=== PATIENT | female | born 2000 | race Caucasian/White ===

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

== ENCOUNTER → 2021-04-22 13:38 | Outpatient (CLI) | payer BC, SELFPAY ==
[2014-01-05 17:47] VITALS: BMI 33.4
[2021-04-22 15:41] LABS: Absolute Lymphocyte Count 1.88 X10^3/uL (0.83-4.51); Absolute Neutrophil Count 4.6 X10^3/uL (2.0-7.7); Basophil# 0.03 X10^3/uL; Basophil% 0.4 % (0-1); Eosinophils% 2.8 % (0-5); Hematocrit 41.8 % (37-47); Hemoglobin 13.7 g/dL (12.0-15.0); Lymphocyte # 1.88 X10^3/ul (0.83-4.51); Mean Corp Hgb Conc 32.8 g/dL (32-36); Mean Corpuscular Hgb 30.4 pg (27.0-32.0); Mean Corpuscular Volume 92.7 fL (81-99); Mean Platelet Vol. 10.7 fl (6.2-12.0); Monocyte# 0.52 X10^3/uL; Monocyte% 7.2 % (0-10); NRBC Flagged by Analyzer 0 % (0-5); Neutrophil # 4.58 X10^3/uL (2.7-7.7); Neutrophil % 63.3 % (47-70); Platelet Count 268 K/mm3 (150-450); RBC Distribution Width CV 13.1 % (11.6-14.6); Red Blood Count 4.51 M/mm3 (4.2-5.4); White Blood Count 7.2 K/mm3 (4.4-11.0)
[2021-04-22 16:18] LABS: AST(SGOT) 23 U/L (15-37); Alanine Aminotransfer ALT/SGPT 33 U/L (13-56); Albumin, Serum 3.8 g/dL (3.2-5.0); Alkaline Phosphatase 74 U/L (45-117); Anion Gap 9 (5-15); BUN 12 mg/dL (7-18); BUN/Creat Ratio 14.4 RATIO (10-20); Calcium,Total 8.9 mg/dL (8.5-10.1); Chloride 105 mmol/L (98-107); Cholesterol 180 mg/dL (200); Creatinine, Serum 0.83 mg/dL (0.55-1.02); EST Glomerular Filtration Rate 91 mL/min (>60); Est Glom Filt Rate - Afr Amer 110 mL/min (>60); Globulin 3.8 g/dL (2.2-4.2); Glucose 85 mg/dL (74-106); High Density Lipoprotein 50 mg/dL; Protein, Total 7.6 g/dL (6.4-8.2); Sodium Level 140 mmol/L (136-145); T4 Free Direct 1.05 ng/dL (0.76-1.46); Thyroid Stim Hormone (TSH) 1.08 uIU/mL (0.358-3.74); Triglycerides 121 mg/dL; Very Low Density Lipoprotein 24 mg/dL (5-40)
[2021-04-22 18:40] LABS: Chlamydia Trachomatis by PCR Negative (Negative); Neisserai gonorrhoeae by PCR Negative (Negative); Probe Check PASS; Sample Adequacy Control PASS; Specimen Processing Control PASS; Trichomonas Vag DNA by PCR Negative (Negative)
[2021-04-24 16:44] LABS: HSV 1 IgG < 0.91 index (0.00-0.90); HSV 2 IgG > 23.60 index (0.00-0.90); Thyroid Peroxidase AB 9 IU/mL (0-34)
[2021-04-25 15:58] LABS: HIV - WCH Non-Reactive (Nonreactive); Syphilis Antibodies Non-reactive
== END ==
PROVIDERS: Referring Provider Nurse Practitioner Adult Health; Visit Provider Nurse Practitioner Adult Health
DX: Z01.419 Encounter for gynecological examination (general) (routine) without abnormal findings (principal); Z72.51 High risk heterosexual behavior
CPT/HCPCS: 36415; 80053; 80061; 84439; 84443; 85025; 86376; 86695; 86696; 86703; 86780; 87491; 87591; 87661

== ENCOUNTER 2021-06-04 00:33 | Emergency (ER) | payer BC, SELFPAY ==
[2021-06-04 00:34] VITALS: BP 124/76; PULSE 88; RESP 18; TEMP 36.6; O2SAT 99; BMI 41.8
--- NOTE | 2021-06-04 01:43 | EX.ED.UPPERE ---
HPI History of Present Illness Chief Complaint: Wound Informant: patient Onset/Context/Timing Onset: Today (JPTA) Context: Sudden Onset Timing: Continuous Quality of Pain: Aching Location: right middle fingernail Current Severity: Mild Maximum Severity: Severe Worsened by: manipulating nail Relieved by: leaving alone Associated Symptoms Associated Symptoms: Negative for Parasthesia, Weakness and Loss of Funtion Narrative Narrative: Patient was walking her dog, the leash got wrapped around one of her fingers, hooked onto the nail which is a false gel nail on top of her natural 1, and felt like it ripped it back. She states it felt like it came all the way off of the nailbed. There is some minor bleeding and it is sore, she does not think she injured any other part of the finger except for the nail. [id number]. PFSH PFSH no medical history Home Medications etonogestrel-ethinyl estradiol [EluRyng] 1 vag ring VAGINAL QMONTH 06/04/21 [History Last Taken Unknown] Allergy/AdvReac Type Severity Reaction Status Date / Time ibuprofen Allergy Swelling Verified 06/04/21 00:37 Social History Smoking Status: Never smoker ROS ROS ED Constitutional Constitutional ED: Denies chills or fever(s) Musculoskeletal Musculoskeletal: Reports extremity pain; Denies neck pain Integumentary Denies Abrasions, rash or wounds Neurologic Neurologic: Denies paresthesias or weakness EXAM Physical Exam Const Vital Signs: 06/04/21 00:34 Temperature 97.8 F Temperature Source Temporal Pulse Rate 88 Respiratory Rate 18 Blood Pressure 124/76 H Blood Pressure Mean 92 Pulse Ox 99 Oxygen Delivery Method Room Air Positive well nourished and well developed General Appearance ED: well developed and NAD Neck full ROM and supple Back/Spine normal ROM and normal to inspection Extremity full ROM Extremity Narrative: Right middle finger: Nail is slightly loosened and barely able to lift off of the nailbed. It is intact within the root/cuticle without any disruption of that structure or bleeding from there or laceration. Source of the bleeding is at the sides of the nail only and is very minor. The nail is very long, as it has a gel nail attached to it, and thick and very opaque with green dutch with designs on it. Neuro oriented x3, no focal motor deficits and no sensory deficits noted Sensorium / Orientation: alert Psych mental status grossly normal and thought process normal Skin Skin Narrative: Very minor superficial break in the skin at the very edge of both sides of the right middle fingernail. No lacerations. Rashes: no rashes MDM MDM MDM Narrative Medical decision making narrative: I do not think patient needs an x-ray, FDP and FDS tendon function is intact and normal without any discomfort, there is no bony tenderness of the finger. I think this nail injury is not as bad as the patient thought it was, it does appear to be adherent to the nail bed and the bleeding appears to be coming from very small splits in the skin to the sides of the nail, without a suspicion for a major nailbed injury/laceration. The patient looked up the gel nails that she has on the Internet, they are not acetone-dissolvable, and require some type of special electric file to physically remove. We do not have any of this here in the hospital. She understands this. I reassured her, I would leave it intact at this time without removing it and inspecting the bed, as there is a good chance that she will not even lose this nail. I also discussed with her the possibility that she will lose the nail in which case leaving it intact will increase the chances of a new nail growing out, as I do not think she has a major nailbed injury needing repaired. She is in agreement with all this, we soaked it with chlorhexidine/saline, and dressed it with a bulky dressing and bacitracin, and she was given follow-up as needed only, she is comfortable with that plan. Discharge Plan Triage Chief Complaint: Wound ED Provider: Suraj Guzman Dx/Rx/DC Orders Clinical Impression: Injury to fingernail of right hand Instructions: ED Detached Fingernail or Toenail Prescriptions: No Action etonogestrel-ethinyl estradiol [EluRyng] 0.12-0.015 mg/24 hr ring 1 vag ring VAGINAL QMONTH RF: 0 [facility] Lucia [facility] - As Needed Disposition Disposition: Home, Self Care
== END 2021-06-04 02:21 | disposition home or self-care (01) ==
PROVIDERS: Emergency Provider Emergency Medicine
DX: S69.91XA Unspecified injury of right wrist, hand and finger(s), initial encounter (principal); X58.XXXA Exposure to other specified factors, initial encounter; Y93.K1 Activity, walking an animal; Y92.9 Unspecified place or not applicable; Y99.9 Unspecified external cause status
CPT/HCPCS: 99282

== ENCOUNTER 2022-01-03 15:02 | Outpatient (CLI) | payer BC, SELFPAY ==
[2022-01-05 13:14] LABS: Thyroid Peroxidase AB 11 IU/mL (0-34)
== END 2022-01-03 23:59 | disposition home or self-care (01) ==
LOC: LAB 15:03
PROVIDERS: Referring Provider Nurse Practitioner Adult Health; Visit Provider Nurse Practitioner Adult Health
DX: F33.0 Major depressive disorder, recurrent, mild (principal)
CPT/HCPCS: 36415; 86376

== ENCOUNTER 2022-07-18 09:06 | Emergency (ER) | payer BC, SELFPAY ==
[2022-07-18 09:07] VITALS: BP 142/101; PULSE 95; RESP 16; TEMP 36.4; O2SAT 100; BMI 34.9
--- NOTE | 2022-07-18 09:44 | US_ITS ---
STUDY: FIRST TRIMESTER OBSTETRICAL ULTRASOUND REASON FOR EXAM: Female, 22 years old first trimester bleeding LMP: Unknown. TECHNIQUE: Transvaginal TECHNICAL QUALITY: Adequate. PRIOR ULTRASOUND: None. FINDINGS: There is visualization of a single gestational sac in a normal intrauterine position. The mean sac diameter (MSD) measures 4.3 cm, indicating an estimated gestational age (EGA) of 9 weeks, 6 days. The gestational sac shape is within normal limits. There is a visualized yolk sac. The yolk sac measures 4 mm. The placenta is non-visualized. There is visualization of a live embryo. The crown-rump length (CRL) measures 3.09 cm, indicating an estimated gestational age (EGA) of 9 weeks, 5 days. There is demonstrated cardiac activity with a heart rate of 172 bpm. The estimated gestation age (EGA) by LMP is 10 weeks, 1 days. The estimated date of delivery (JULIENNE) by LMP is 02/12/2023. The estimated gestation age (EGA) by US is 9 weeks, 6 days. The estimated date of delivery (JULIENNE) by US is 02/14/2023. The uterus measures 11.7 cm x 8.9 cm x 6.8 cm. There is no demonstrated uterine fibroid. The cervix is closed. The right ovary measures 3.1 cm x 1.9 cm x 1 cm. There is no right ovarian cyst. There is no visualized right adnexal mass or complex lesion. The left ovary measures 3.6 cm x 2.9 cm x 2.4 cm. There is no left ovarian cyst. There is no visualized left adnexal mass or complex lesion. There is no fluid in the cul de sac. US/Transvaginal w/Preg US IMPRESSION: Single live uterine gestation with a mean gestational age of 9 weeks and 6 days. Electronically Signed: John Xie MD at 12:25 EDT ,
--- NOTE | 2022-07-18 09:45 | EDS_ITS ---
HPI HPI - Female History of Present Illness Chief Complaint: Vag Bld, Preg Informant: patient Narrative Narrative: 22-year-old female G1, P0 at 11 weeks presenting to the emergency department with vaginal bleeding. Patient notes that over the past several days she has felt nauseated unable to keep hydration in. She states that she called her doctor's office and while awaiting a phone call back developed some vaginal bleeding. She states its more like spotting. She denies any passage of tissue or clots. She notes some left-sided cramping that is mild in nature. She notes that she has had diarrhea after attending a [employer] green party in [place] this weekend. No reported fevers. PFSH PFSH Home Medications prochlorperazine maleate 10 mg tablet 10 mg PO Q6H PRN Nausea 07/18/22 [History Last Taken Unknown] Allergy/AdvReac Type Severity Reaction Status Date / Time ibuprofen Allergy Swelling Verified 07/18/22 09:06 Social History (Updated 07/18/22 @ 09:[address] Bart Bryant, DO) Smoking Status: Never smoker substance use type: does not use ROS ROS ED Constitutional Constitutional ED: Denies chills or weight loss Eyes Eyes: Denies change in vision or diplopia ENT ENT ED: Denies ear pain, rhinorrhea or sore throat Cardiovascular Cardiovascular: Denies chest pain, orthopnea, palpitations or racing heartbeat Respiratory/Chest Respiratory/Chest: Denies cough, dyspnea or orthopnea Gastrointestinal Gastrointestinal: Reports diarrhea, nausea and vomiting; Denies abdominal pain Genitourinary Genitourinary ED: Reports other Details: Vaginal bleeding pelvic cramps ; Denies dysuria, hematuria or urinary frequency Musculoskeletal Musculoskeletal: Denies arthralgias or myalgias Integumentary Denies abscess or rash Neurologic Neurologic: Denies headache(s) or weakness Psychiatric Psychiatric: Denies anxiety, depression, suicidal ideation or suicidal thoughts Endocrine Endocrinology: Denies polydipsia, polyphagia or polyuria Allergic/Immunologic Allergic/Immunologic ED: Denies mouth swelling, tongue swelling or urticaria EXAM Physical Exam Const Vital Signs: 07/18/22 09:07 07/18/22 12:17 Temperature 97.6 F L Temperature Source Temporal Pulse Rate 95 55 L Respiratory Rate 16 16 Blood Pressure 142/101 H 121/71 H Blood Pressure Mean 114 87 Pulse Ox 100 98 Oxygen Delivery Method Room Air Room Air Positive well nourished and well developed General Appearance ED: well developed HEENT Reports normocephalic, head/scalp atraumatic and moist mucous membranes Eyes PERRL and EOMs intact bilaterally Neck no lymphadenopathy, supple and no JVD Resp normal respiratory effort and clear to auscultation bilaterally Cardio regular rate, regular rhythm and no murmurs GI normal to inspection, nondistended, normoactive bowel sounds and non-tender Palpation: soft Back/Spine no CVA tenderness and normal ROM Extremity normal to inspection General Extremety ED: Negative for edema General Extremity: Negative for edema Neuro oriented x3 and CN's II-XII intact bilaterally Sensorium / Orientation: alert Motor Exam: strength 5/5 throughout Psych mental status grossly normal Mood & Affect: anxious and tearful; Negative for depressed Skin no rashes or lesions noted and no wounds MDM MDM MDM Narrative Medical decision making narrative: Pelvic ultrasound demonstrates a single live intrauterine . The patient received Zofran for nausea. Hemoglobin 13.5 her blood type is O+. At this point patient be discharged home. Pelvic rest and follow-up with primary care. Return if worsening or concerns Lab Data Attestation: I reviewed the patient's lab results. Labs: Laboratory Results - last 24 hr 07/18/22 07/18/22 07/18/22 09:40 09:40 09:40 Hgb 13.5 Hct 39.6 HCG, Quant 35845 H Blood Type O POSITIVE Radiography Diagnostic Testing: Clinical Impression(s) from Imaging Studies Obstetrics Ultrasound 07/18/22 09:44 IMPRESSION: Single live uterine gestation with a mean gestational age of 9 weeks and 6 days. Electronically Signed: John Xie MD at 12:25 EDT , Discharge Plan Triage Chief Complaint: Vag Bld, Preg ED Provider: Bart Bryant Dx/Rx/DC Orders Clinical Impression: First trimester , Vaginal bleeding Instructions: 1st Trimester Prescriptions: No Action prochlorperazine maleate 10 mg Tablet 10 mg PO Q6H PRN (Reason: Nausea) Primary Care Provider: [facility] Elke Lucia Referrals: [facility] [Primary Care Provider] - Activity Restrictions/Additional Instructions: Please follow-up with your face cleaner. Please inform them of your ED visit today. Disposition Disposition: Home, Self Care
[2022-07-18 09:56] LABS: Hematocrit 39.6 % (37-47); Hemoglobin 13.5 g/dL (12.0-15.0)
[2022-07-18 10:52] LABS: hCG Titer Quant., Serum 63358 mIU/mL (1-3)
[2022-07-18] MEDS: Ondansetron ODT 4 MG Tablet PO (11:59)
[2022-07-18 12:17] VITALS: BP 121/71; PULSE 55; RESP 16; O2SAT 98
== END 2022-07-18 13:03 | disposition home or self-care (01) ==
PROVIDERS: Emergency Provider Emergency Medicine; Visit Provider Emergency Medicine
DX: O20.9 Hemorrhage in early pregnancy, unspecified (principal); Z3A.11 11 weeks gestation of pregnancy
CPT/HCPCS: 76817; 84702; 85014; 85018; 86900; 86901; 99284; A4216

== ENCOUNTER 2023-01-22 18:50 | Inpatient (IN) | payer BC, SELFPAY ==
[2023-01-22] VITALS (55 sets, daily range): BP systolic 118–170; BP diastolic 77–108; PULSE 61–171; TEMP 36.7; O2SAT 82–99; BMI 40.3
[2023-01-22] MEDS: Lactated Ringers 1,000 ML 50 ML IV (19:35)
--- NOTE | 2023-01-22 19:36 | PCM.HP.OB ---
HPI - General General Date of Admission: 01/22/23 HPI Narrative KENDRA CARDONA, is a 22 F who presents at at 37 weeks for induction of labor due to GHTN. Maternal Data Information Final JULIENNE: 02/12/23 PFSH PFSH Home Medications prochlorperazine maleate 10 mg tablet 10 mg PO Q6H PRN Nausea 07/18/22 [History Last Taken Unknown] acyclovir 200 mg capsule mg Check with primary doctor 01/22/23 [History Last Taken Unknown] aspirin 81 mg capsule 81 mg PO DAILY Check with primary doctor 01/22/23 [History Last Taken Unknown] [id number] 1 mg tablet 1 tab PO Check with primary doctor 01/22/23 [History Last Taken Unknown] Allergy/AdvReac Type Severity Reaction Status Date / Time ibuprofen Allergy Swelling Verified 01/22/23 19:46 Social History (Updated 07/18/22 @ 09:[address] Bart Bryant, DO) Smoking Status: Never smoker substance use type: does not use ROS Constitutional Constitutional: Reports systems reviewed and no addt'l complaints, except as documented; Denies headache(s) Eyes Eyes: Denies acute decrease in peripheral vision, blurry vision or change in vision ENT HEENT: Reports systems reviewed and no addt'l complaints, except as documented Cardiovascular Cardiovascular: Denies chest pain or dizziness Respiratory/Chest Respiratory/Chest: Denies cough, dyspnea, dyspnea on exertion, shortness of breath at rest or shortness of breath with exertion Gastrointestinal Gastrointestinal: Denies abdominal pain, diarrhea, nausea or vomiting Genitourinary Genitourinary: Denies abdominal discomfort Musculoskeletal Musculoskeletal: Denies limited range of motion Integumentary Integumentary: Reports systems reviewed and no addt'l complaints, except as documented Neurologic Neurologic: Reports systems reviewed and no addt'l complaints, except as documented Psychiatric Psychiatric: Reports systems reviewed and no addt'l complaints, except as documented Endocrine Endocrinology: Reports systems reviewed and no addt'l complaints, except as documented Hematologic/Lymphatic Hematologic/Lymphatic: Reports systems reviewed and no addt'l complaints, except as documented Allergic/Immunologic Allergic/Immunologic: Reports systems reviewed and no addt'l complaints, except as documented Vital Signs Vital Signs Vital Signs: 01/22/23 19:29 01/22/23 19:29 01/22/23 19:31 Pulse Rate 86 Blood Pressure 163/104 H BP Systolic 163 BP Diastolic 104 Pulse Ox 99 01/22/23 19:31 Pulse Rate 85 Blood Pressure BP Systolic BP Diastolic Pulse Ox Physical Exam Const alert and oriented x3 General Appearance: cooperative Orientation / Consciousness: awake, oriented to person, oriented to place and oriented to time Exam Limitations: no limitations HEENT normocephalic Head and Scalp: normal to inspection, normocephalic and atraumatic Face and Sinus: normal facial exam Eyes General Eye: normal appearance of both eyes Neck full ROM Chest Chest: symmetrical chest wall rise Resp normal respiratory effort and normal air movement Auscultation: clear to auscultation bilaterally Cardio regular rate, regular rhythm, S1 normal heart sound, S2 normal heart sound, no murmurs, no rub, no gallops and no clicks GI normal to inspection, nondistended, normoactive bowel sounds and non-tender appearance of the vagina normal Bladder / Kidney Exam: no CVA tenderness Back/Spine normal ROM Extremity normal to inspection and full ROM Skin no rashes or lesions noted Neuro oriented x3, CN's II-XII intact bilaterally and moves all extremities Sensorium / Orientation: awake, alert and oriented to person Motor Exam: clonus absent Deep Tendon Reflexes: Rt Patellar (L4): 2+ and Lt Patellar (L4): 2+ Labs Labs Labs: Blood Type O POSITIVE Hct 39.6 % (37-47) Hgb 13.5 g/dL (12.0-15.0) Obstetrics US Syphilis Total Ab Non-reactive HIV 1&2 Antibody Non-Reactive (Nonreactive) GBS positive RPR negative GC/CT negative HIV negative O positive HBsAG negative HepC negative Assessment & Plan (1) Obesity affecting : (2) Gestational hypertension: (3) growth restriction antepartum: (4) History of herpes genitalis: (5) History of depression: (6) History of marijuana use: PLAN: Plan 1) Admit to labor and delivery 2) Routine labs and preeclampsia labs 3) Limited bedside US confirms 4) BP elevated upon admission severe range. Labetalol per protocol. Magnesium 6gm loading dose and 2gram maintenace. 150ml/hr fluid restriction. notified of plan and orders. 5) Hernández with PO cytotec for induction of labor and then pitocin after hernández is out and 4hr post cytotec 6) GBS PCN per protocol 7) Referral of care to physician due to GHTN with severe range BP.
[2023-01-22 19:55] LABS: Absolute Lymphocyte Count 2.55 X10^3/uL (0.83-4.51); Absolute Neutrophil Count 7.1 X10^3/uL (2.0-7.7); Basophil# 0.03 X10^3/uL; Basophil% 0.3 % (0-1); Eosinophil# 0.14 X10^3/uL; Eosinophils% 1.3 % (0-5); Hemoglobin 12.3 g/dL (12.0-15.0); Lymphocyte # 2.55 X10^3/ul (0.83-4.51); Lymphocyte % 24.1 % (19-41); Mean Corp Hgb Conc 34.2 g/dL (32-36); Mean Corpuscular Hgb 32.2 pg (27.0-32.0); Mean Corpuscular Volume 94.2 fL (81-99); Mean Platelet Vol. 10.3 fl (6.2-12.0); Monocyte# 0.75 X10^3/uL; Monocyte% 7.1 % (0-10); NRBC Flagged by Analyzer 0 % (0-5); Neutrophil # 7.08 X10^3/uL (2.7-7.7); Neutrophil % 66.9 % (47-70); Platelet Count 247 K/mm3 (150-450); RBC Distribution Width CV 12.2 % (11.6-14.6); RBC Distribution Width SD 42.4 fl (35.1-43.9); Red Blood Count 3.82 M/mm3 (4.2-5.4); White Blood Count 10.6 K/mm3 (4.4-11.0)
[2023-01-22] MEDS: Labetalol (Prefilled) 20 MG/4 ML IV ×2 (19:56→21:09)
[2023-01-22] MEDS: Magnesium Sulfate 4gm/100mL 4 GM/100 ML IV.SOLN. IV (19:56)
[2023-01-22] MEDS: 0.9% Normal Saline Single 100 ML IV.SOLN. INTRA-UTER (19:59)
[2023-01-22 20:09] LABS: AST(SGOT) 20 U/L (15-37); Alanine Aminotransfer ALT/SGPT 16 U/L (13-56); Creatinine, Serum 0.82 mg/dL (0.55-1.02); EST Glomerular Filtration Rate 91 mL/min (>60); Est Glom Filt Rate - Afr Amer 110 mL/min (>60); Uric Acid 7.3 mg/dL (2.6-6.0)
[2023-01-22] MEDS: Magnesium Sulfate 4gm/100mL 2 GM/50 ML IV.SOLN. IV (20:16)
[2023-01-22] MEDS: miSOPROStol 25 MCG TABLET PO (20:20)
[2023-01-22] MEDS: Magnesium Sulfate 20 GM/500 ML BAG IV (20:27)
[2023-01-22 20:29] LABS: Syphilis Antibodies Non-reactive
[2023-01-22] MEDS: Labetalol 100 MG Tablet PO ×2 (20:58→22:32)
[2023-01-22] MEDS: 0.9% Saline Lock 10 ML Syringe IV (21:09)
[2023-01-22 21:21] LABS: Protein, Urine (Random) 12.9 mg/dL (<11.9); Protein:Creat Ratio 485 mg/g CRE (0-200)
[2023-01-22 21:25] LABS: Amphetamine Urine VISTA NEGATIVE (<1000 ng/mL); Barbiturate Urine VISTA NEGATIVE (< 200 ng/mL); Benzodiazepine Urine VISTA NEGATIVE (< 200 ng/mL); Cocaine Urine VISTA NEGATIVE (< 300 ng/mL); Ecstacy Urine VISTA NEGATIVE (< 500 ng/mL); Methadone Urine VISTA NEGATIVE (< 300 ng/mL); PCP Urine VISTA NEGATIVE (< 25 ng/mL); THC Urine VISTA NEGATIVE (< 50 ng/mL); Vista UDS pH Range 6
[2023-01-23] VITALS (216 sets, daily range): BP systolic 104–141; BP diastolic 55–98; PULSE 53–106; RESP 16–18; TEMP 36.2–37.8; O2SAT 84–100
[2023-01-23] MEDS: Penicillin G 3,000,000 Units 50 ML 100 UNITS IV ×3 (00:12→07:54)
[2023-01-23] MEDS: Oxytocin 15 Units/NS 250ml 15 UNITS/250 ML IV.SOLN 2 UNITS IV (00:21)
[2023-01-23] MEDS: Mag Hydrox/Al Hydrox/Simeth 30 ML UDC PO (00:25)
[2023-01-23] MEDS: Acetaminophen 500 MG Tablet PO (04:50)
[2023-01-23] MEDS: Magnesium Sulfate 20 GM/500 ML BAG IV ×2 (05:32→14:44)
--- NOTE | 2023-01-23 08:46 | PN.OBGYN_ITS ---
Subjective Subjective Patient comfortable with ctxs Objective Data Objective Data Vital Signs: Vital Signs Temp Pulse BP Pulse Ox O2 Del Method 98.1 F 65 139/84 H 99 Room Air 01/23/23 07:55 01/23/23 08:43 01/23/23 07:57 01/23/23 08:43 01/23/23 08:00 Oxygen Delivery Method Room Air Weight: 281 lb Body Mass Index (BMI) 40.3 Intake & Output: Intake and Output for Last 24 Hours 01/21/23 01/22/23 01/23/23 23:59 23:59 23:59 Intake Total 490 / 540 883.25 / 883.25 Output Total 400 / 400 1250 / 1250 Balance 90 / 140 -366.75 / -366.75 Lab / Micro Data Result Diagrams: 01/22/23 19:35 01/22/23 19:35 Labs: Laboratory Results - last 24 hr 01/22/23 19:35: WBC 10.6, RBC 3.82 L, Hgb 12.3, Hct 36.0 L, MCV 94.2, MCH 32.2 H , MCHC 34.2, RDW Std Deviation 42.4, RDW Coeff of Nubia 12.2, Plt Count 247, MPV 10.3, Immature Gran % (Auto) 0.300, Neut % (Auto) 66.9, Lymph % (Auto) 24.1, Cottle % (Auto) 7.1, Eos % (Auto) 1.3, Baso % (Auto) 0.3, Absolute Neuts (auto) 7.1, Absolute Lymphs (auto) 2.55, Nucleated RBC % 0 01/22/23 19:35: Blood Type O POSITIVE, Antibody Screen NEGATIVE 01/22/23 19:35: Syphilis Total Ab Non-reactive 01/22/23 19:35: Creatinine 0.82, Est GFR (MDRD) Af Amer 110, Est GFR (MDRD) Non- Af 91, Uric Acid 7.3 H, AST 20, ALT 16 01/22/23 21:00: U Random Total Protein 12.9 H, Urine Creatinine 26.60, Protein/Creatinin Ratio 485 H 01/22/23 21:00: Urine Opiates Screen NEGATIVE, Urine Methadone Screen NEGATIVE, Ur Barbiturates Screen NEGATIVE, Ur Phencyclidine Scrn NEGATIVE, Ur Amphetamines Screen NEGATIVE, MDMA (Ecstasy) Screen NEGATIVE, U Benzodiazepines Scrn NEGATIVE, Urine Cocaine Screen NEGATIVE, U Cannabinoids Screen NEGATIVE, Ur Drug Screen Comment Physical Exam Const alert, oriented x3 and no apparent distress Narrative: cvx - 4.5/80/-2 NST FHR Rate Baby A Baseline: 130 Variability:: Moderate Accelerations:: 15 x 15 Decelerations:: Variable Uterine Activity:: Q 2-3 min Assessment & Plan (1) Pre-eclampsia, severe: PLAN: Plan AROM clear fluid IUPC placed Continue pitocin induction
[2023-01-23] MEDS: LACTATED RINGERS 500 ML 999 ML IV (09:58)
[2023-01-23] MEDS: Ondansetron 4 MG/2 ML Vial IV (10:08)
[2023-01-23] MEDS: fentaNYL-bupivacaine (epidural) 100 ML BAG EPIDURAL (10:45)
--- NOTE | 2023-01-23 11:18 | EX.PCM.OBRPT ---
Maternal Data Information Final JULIENNE: 02/12/23 Gestational age: 37&1 Vaginal Delivery Maternal Presentation Maternal Presentation: Medically Indicated Induction Medical Reason for Induction: Preeclampsia, eclampsia Operative Information Date of Procedure: 01/23/23 Pre-Operative Diagnosis: Severe preeclampsia Post-Operative Diagnosis: Same Surgery / Procedure Performed: Spontaneous Vaginal Delivery Type of Anesthesia: Epidural Drain: Conklin to straight drain Estimated Blood Loss: 200ml Findings Description of Procedure: Patient precipitously delivered through a loose nuchal cord. 3VC clamped & cut by RN in delayed fashion. Placenta delivered with gentle traction and good uterine tone obtained. Presentation: Vertex Amniotic Fluid Description: Clear Placental Delivery Description: Expressed Placenta Disposition: [facility] Specimen(s) Removed: Placenta Cord Vessel Description: 3 Vessels Cord Entanglement: Around neck x 1, loose Nuchal Cord Compression: Without compression Infant A Gender: Male (1 minute): 8 (5 minute): 9 Delayed Cord Clamping: Yes Post Vaginal Delivery Medications Given After Delivery: IV Pitocin Episiotomy Description: None Laceration: None Complication Complications: None
[2023-01-23] MEDS: Labetalol 100 MG Tablet PO ×2 (11:46→22:01)
[2023-01-23] MEDS: Oxytocin 15 Units/NS 250ml 15 UNITS/250 ML IV.SOLN 83 UNITS IV (11:51)
[2023-01-24] VITALS (15 sets, daily range): BP systolic 103–124; BP diastolic 49–81; PULSE 69–89; RESP 16–18; TEMP 36.3–37.1; O2SAT 95–97
[2023-01-24] MEDS: Magnesium Sulfate 20 GM/500 ML BAG IV (00:37)
--- NOTE | 2023-01-24 01:20 | NURSING ---
pt passed a small clot around the size of a golf ball in width but not thickness. Educated pt to keep watching for anymore clots that size and to notify this RN so she can look at them.
--- NOTE | 2023-01-24 07:15 | PCM.PN.OB ---
Subjective Subjective Denies complaints other than mild headache from the magnesium Objective Data Objective Data Vital Signs: Vital Signs Temp Pulse Resp BP Pulse Ox O2 Del Method 98.2 F 74 16 124/76 H 97 Room Air 01/24/23 06:00 01/24/23 06:00 01/24/23 06:00 01/24/23 06:00 01/24/23 04:10 01/24/23 04:10 Oxygen Delivery Method Room Air Weight: 281 lb Body Mass Index (BMI) 40.3 Intake & Output: Intake and Output for Last 24 Hours 01/22/23 01/23/23 01/24/23 23:59 23:59 23:59 Intake Total 490 / 540 3152.34 / 3152.34 580 / 580 Output Total 400 / 400 2425 / 2425 300 / 300 Balance 90 / 140 727.34 / 727.34 280 / 280 Lab / Micro Data Result Diagrams: 01/22/23 19:35 01/22/23 19:35 Physical Exam Const alert, oriented x3 and no apparent distress HEENT normocephalic GI soft to palpation, non-tender and non-distended GI Narrative: fundus firm, mid & below umbilicus Extremity normal to inspection and no calf tenderness Assessment & Plan (1) Pre-eclampsia, severe: COMMENT: PPD#1 PLAN: Plan Continue magnesium x24 hours On labetalol 100mg bid Routine PP care
[2023-01-24] MEDS: Labetalol 100 MG Tablet PO (10:13)
[2023-01-25 00:05] VITALS: BP 127/70; PULSE 72; RESP 18; TEMP 36.8
[2023-01-25 04:30] VITALS: BP 120/66; PULSE 62; RESP 16; TEMP 36.6
--- NOTE | 2023-01-25 09:07 | DCINST_ITS ---
Discharge Instructions Diet Discharge Diet: No restrictions Activity Discharge Activity: Return to Normal Activity, May Shower and May Take a Tub Bath May resume sexual activity in: 4-6 weeks Weight Bearing Status: Weight bearing as tolerated Dressing / Incision Call your doctor if you observe: Inability to urinate, Using more than 1 pad per hour, Shortness of breath, Dizziness, Swelling in the ankles, Chest pain, Calf discomfort and Uncontrolled pain Follow Up Care When: 1 week for BP check Test Results: Test results from this visit will be discussed in further detail at your follow- up appointment, if applicable. Discharge Plan Admission Admit Date/Time: 01/22/23 18:50 Primary Reason for Your Visit: Labor and Delivery Attending Provider: Leann Crow Primary Care Provider: [facility] Elke Lucia Discharge Orders/Prescriptions Prescriptions: New labetalol 100 mg Tablet 100 mg PO BID Qty: 60 0RF Continued [id number] 1 mg Tablet 1 tab PO Discontinued prochlorperazine maleate 10 mg Tablet 10 mg PO Q6H PRN (Reason: Nausea) acyclovir 200 mg Capsule aspirin 81 mg Capsule 81 mg PO DAILY [facility] - Disposition Disposition (needs filled in before D/C Order can be placed): Home, Self Care
[2023-01-25 09:20] VITALS: BP 128/77; PULSE 61; RESP 16; TEMP 36.7; O2SAT 98
--- NOTE | 2023-01-25 09:29 | NURSING ---
0928: Left a message with the [facility] office to confirm if the provider wanted pt to recieve her 100mg PO labetolol this AM. Pts BP is 128/77 and HR is 61. Orders to follow.
[2023-01-25] MEDS: Labetalol 100 MG Tablet PO (10:11)
[2023-01-25] MEDS: 0.9% Saline Lock 10 ML Syringe IV (10:11)
[2023-01-25 12:48] VITALS: BP 135/79; PULSE 62; RESP 16; TEMP 36.5; O2SAT 99
[2023-01-25 16:59] VITALS: BP 125/77; PULSE 65; RESP 16; TEMP 36.7; O2SAT 99
--- NOTE | 2023-01-25 18:36 | PCM.PN.OB ---
Subjective Subjective Patient seen at bedside. Denies any headache, vision changes, RUQ pain, dizziness, SOB or CP. Blood pressures too low last night for labetalol PO medication. Magnesium IV off since yesterday at 1100. Desires discharge home today. Objective Data Objective Data Vital Signs: Vital Signs Temp Pulse Resp BP Pulse Ox O2 Del Method 97.8 F 62 16 120/66 97 Room Air 01/25/23 04:30 01/25/23 04:30 01/25/23 04:30 01/25/23 04:30 01/24/23 15:45 01/24/23 15:45 Oxygen Delivery Method Room Air Weight: 281 lb Body Mass Index (BMI) 40.3 Intake & Output: Intake and Output for Last 24 Hours 01/23/23 01/24/23 01/25/23 23:59 23:59 23:59 Intake Total 3152.34 / 3152.34 1580 / 1580 Output Total 2425 / 2425 1530 / 1530 Balance 727.34 / 727.34 50 / 50 Lab / Micro Data Result Diagrams: 01/22/23 19:35 01/22/23 19:35 ROS Eyes Eyes: Denies blurry vision, change in vision or spots in vision ENT HEENT: Denies dizziness or headache(s) Cardiovascular Cardiovascular: Denies abdominal pain, chest pain or dyspnea Respiratory/Chest Respiratory/Chest: Denies cough, dyspnea, shortness of breath at rest or shortness of breath with exertion Gastrointestinal Gastrointestinal: Denies abdominal pain, diarrhea or vomiting Genitourinary Genitourinary: Denies change in urinary stream, difficulty urinating or dysuria Musculoskeletal Musculoskeletal: Reports none Integumentary Integumentary: Denies rash Neurologic Neurologic: Denies dizziness, headache(s), memory loss or weakness Physical Exam Const alert and no apparent distress General Appearance: cooperative and comfortable Exam Limitations: no limitations HEENT normocephalic Eyes General Eye: normal appearance of both eyes Neck full ROM General: normal visual inspection Chest Chest: symmetrical chest wall rise Resp normal respiratory effort and normal air movement Effort and Inspection: symmetric chest movement Auscultation: clear to auscultation bilaterally Cardio regular rate and regular rhythm GI normal to inspection, nondistended, normoactive bowel sounds Back/Spine normal ROM Extremity full ROM and no calf tenderness General Extremity: normal exam except as noted Skin no rashes or lesions noted Neuro CN's II-XII intact bilaterally Psych mental status grossly normal Assessment & Plan (1) Pre-eclampsia, severe: COMMENT: PPD#2 (2) Obesity affecting : (3) (spontaneous vaginal delivery): (4) Gestational hypertension: (5) (infant): PLAN: Plan PPD 2 Blood pressures stable Labetalol 100 mg PO BID support D/C home per patient's request BP check tomorrow when here for visit Preeclampsia precautions and BP parameters reviewed Dr. Crow involved in plan of care RTO- 1 week in office or sooner if needed
== END 2023-01-25 19:07 | disposition home or self-care (01) | DRG 806 ==
PROVIDERS: Advanced Practice Midwife; Admitting Provider Obstetrics & Gynecology; Referring Provider Obstetrics & Gynecology; Visit Provider Obstetrics & Gynecology
DX: O13.4 Gestational [pregnancy-induced] hypertension without significant proteinuria, complicating childbirth (principal); Z37.0 Single live birth; O98.33 Other infections with a predominantly sexual mode of transmission complicating the puerperium; O14.14 Severe pre-eclampsia complicating childbirth; A60.9 Anogenital herpesviral infection, unspecified; O69.81X0 Labor and delivery complicated by cord around neck, without compression, not applicable or unspecified; Z3A.37 37 weeks gestation of pregnancy; O62.3 Precipitate labor; O99.214 Obesity complicating childbirth; E66.9 Obesity, unspecified; Z79.82 Long term (current) use of aspirin; Z79.899 Other long term (current) drug therapy
CPT/HCPCS: 59025; 59050; 76815; 80307; 82565; 82570; 84156; 84450; 84460; 84550; 85025; 86780; 86850; 86900; 86901; 99221; J7120; A4216; G0378; J2405